=== PATIENT | female | born 1985 | race American Indian/Alaskan Native ===

== ENCOUNTER 2017-12-07 19:39 | Emergency (ER) | payer MEDICAID ==
[2017-12-07 19:55] VITALS: BP 115/77; PULSE 102; RESP 20; TEMP 99.6; O2SAT 99
[2017-12-07] MEDS ORDERED: Oxycodone/Acetaminophen 5/325 mg Tab PO STA (20:20)
--- NOTE | 2017-12-07 20:24 | C.PDOC ---
History Of Present Illness 32 yo female came into the ER c/o left sided tooth pain that started two days ago. Pt notes the pain started radiating to her ear. Took Aleve at 1pm without significant relief. (+) nasal congestion Denies difficulty breathing, difficulty swallowing, cough, sob, fever, or chest pain. Time Seen by Provider: 12/07/17 19:56 Chief Complaint (Nursing): Flu-like Symptoms History Per: Patient History/Exam Limitations: None Onset/Duration Of Symptoms: Days Current Symptoms Are (Timing): Still Present Past Medical History Vital Signs: Last Vital Signs Temp 99.6 F 12/07/17 19:50 Pulse 102 H 12/07/17 19:50 Resp 20 12/07/17 19:50 BP 115/77 12/07/17 19:50 Pulse Ox 99 12/07/17 19:50 - Medical History PMH: Anxiety, Asthma Family History: States: Unknown Family Hx - Social History Hx Alcohol Use: No Hx Substance Use: No - Immunization History Hx Tetanus Toxoid Vaccination: No Hx Influenza Vaccination: No Hx Pneumococcal Vaccination: No Review Of Systems Except As Marked, All Systems Reviewed And Found Negative. ENT: Positive for: Ear Pain, Mouth Pain Physical Exam - Physical Exam Appears: Well, Non-toxic, No Acute Distress Skin: Normal Color, Warm, Dry Head: Atraumatic, Normacephalic Eye(s): bilateral: Normal Inspection, EOMI Ear(s): Bilateral: Normal Nose: Normal Oral Mucosa: Moist Teeth: Tender To Palpation ((+) TTP to the left maxillary incisor with filling ) Gingiva: No Swelling, Tender (left maxillary), No Abscess Throat: Normal, No Erythema, No Exudate, No Drooling Neck: Normal, Normal ROM, Supple Chest: Symmetrical Cardiovascular: Rhythm Regular Respiratory: Normal Breath Sounds, No Accessory Muscle Use Back: Normal Inspection Extremity: Normal ROM Neurological/Psych: Oriented x3, Normal Speech ED Course And Treatment O2 Sat by Pulse Oximetry: 99 Progress Note: Pt was treated with Amoxicillin, Toradol and percocet. Pn re- evalution, pain improved. Pt is tolerating po. Remains afebrile. No n/v. No difficulty breathing or swallowing . Disposition - Disposition Referrals: [facility] [Outside] Disposition: HOME/ ROUTINE Disposition Time: 20:26 Condition: STABLE Additional Instructions: Follow up with the dentist tomorrow. Return to the ER if symptoms persist or worsen. Prescriptions: Amoxicillin 875 mg PO BID #14 tablet Benzocaine 7.5% [Orajel] 7.5 gel MM TID #1 tube traMADol [Ultram] 50 mg PO Q8 #20 tab Instructions: Dental Pain (DC) - Clinical Impression Clinical Impression: Toothache
[2017-12-07] MEDS ORDERED: Oxycodone/Acetaminophen 5/325 mg Tab ONE (20:28)
== END 2017-12-07 20:55 | disposition home or self-care (01) ==
LOC: C.ER 19:39
DX: K08.89 Other specified disorders of teeth and supporting structures (principal); F17.210 Nicotine dependence, cigarettes, uncomplicated
CPT/HCPCS: 96372; 99283; J1885